=== PATIENT | male | born 1975 | race African-American/Black ===

== ENCOUNTER 2020-02-01 07:44 | Outpatient (CLI) | payer OTHER | END 2020-02-01 15:00 | disposition home or self-care (01) | LOC: EDBD 07:44 → SONOGRAMA 07:44 | DX: I10 Essential (primary) hypertension (principal); R10.10 Upper abdominal pain, unspecified ==

== ENCOUNTER 2020-12-01 08:59 | Outpatient (CLI) | payer OTHER | END 2020-12-01 09:17 | disposition home or self-care (01) | LOC: TOM 08:59 | DX: K11.5 Sialolithiasis (principal) ==

== ENCOUNTER 2023-06-25 12:17 | Outpatient (CLI) | payer OTHER | END 2023-06-25 12:24 | disposition home or self-care (01) | LOC: RAD 12:17 | DX: N20.0 Calculus of kidney (principal) ==

== ENCOUNTER 2025-02-20 10:58 | Outpatient (CLI) | payer OTHER | END 2025-02-20 11:06 | disposition home or self-care (01) | LOC: TOM 10:58 | DX: Q82.6 Congenital sacral dimple (principal) ==